=== PATIENT | female | born 1950 ===

== ENCOUNTER → 2017-03-20 | Outpatient (RCR) | payer OTHER | END | disposition home or self-care (01) | LOC: PTY 14:45 | DX: M54.12 Radiculopathy, cervical region (principal); G89.29 Other chronic pain | CPT/HCPCS: 97110; 97162; G0283 ==

== ENCOUNTER → 2017-04-20 | Outpatient (RCR) | payer OTHER | END | disposition home or self-care (01) | LOC: PTY 03-29 14:00 | DX: M54.12 Radiculopathy, cervical region (principal); G89.29 Other chronic pain | CPT/HCPCS: 97110; G0283 ==

== ENCOUNTER 2017-05-17 12:44 | Outpatient (RCR) | payer OTHER | END 2017-05-20 | disposition home or self-care (01) | LOC: PTY 12:44 | DX: M54.12 Radiculopathy, cervical region (principal); G89.29 Other chronic pain | CPT/HCPCS: 97110; G0283 ==

== ENCOUNTER 2017-06-13 12:33 | Outpatient (RCR) | payer OTHER | END 2017-06-20 | disposition home or self-care (01) | LOC: PTY 12:33 | DX: M54.12 Radiculopathy, cervical region (principal); G89.29 Other chronic pain | CPT/HCPCS: 97110; G0283 ==

== ENCOUNTER 2017-07-11 14:45 | Outpatient (RCR) | payer OTHER | END 2017-07-20 | disposition home or self-care (01) | LOC: PTY 14:45 | DX: M54.12 Radiculopathy, cervical region (principal); G89.29 Other chronic pain; Z91.81 History of falling | CPT/HCPCS: 97110; G0283 ==

== ENCOUNTER 2017-08-15 13:19 | Outpatient (RCR) | payer OTHER | END 2017-08-20 | disposition home or self-care (01) | LOC: PTY 13:19 | DX: M54.12 Radiculopathy, cervical region (principal); G89.29 Other chronic pain; Z91.81 History of falling | CPT/HCPCS: 97110; G0283 ==

== ENCOUNTER 2017-08-25 14:00 | Outpatient (RCR) | payer OTHER | END 2017-09-20 | disposition home or self-care (01) | LOC: PTY 14:00 | DX: M54.12 Radiculopathy, cervical region (principal); G89.29 Other chronic pain; G95.9 Disease of spinal cord, unspecified; R29.6 Repeated falls ==